=== PATIENT | female | born 1955 | race American Indian/Alaskan Native ===

== ENCOUNTER 2017-04-05 22:02 | Emergency (ER) | payer BC, OTHER ==
--- NOTE | 2017-04-06 01:25 | EDM.PDOC ---
ED HPI GENERAL MEDICAL PROBLEM - General Chief Complaint: Chest Pain Stated Complaint: PAIN ON SIDE/WALK IS PAINFUL [id number] Time Seen by Provider: 04/06/17 01:15 Source of Information: Reports: Patient History Limitations: Reports: No Limitations - History of Present Illness INITIAL COMMENTS - FREE TEXT/NARRATIVE: This 61 yo female patient reports to the ED with left sided chest and rib pain. The patient reports she was doing laundry on when the washing machine stopped working. The patient was moving the wet clothing from the washer to the dryer when she felt a pain in her left ribs. 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 The patient reports she took some ibuprofen on (which reduced her pain). 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 Right Thoracic Pain Score (Numeric/FACES): 6 - Related Data Allergies Allergy/AdvReac Type Severity Reaction Status Date / Time codeine Allergy Cannot Verified 04/05/17 22:20 Remember Latex, Natural Rubber Allergy Rash Verified 04/05/17 22:20 Home Meds: Home Meds Aspirin [[place] Aspirin] 81 mg PO DAILY 03/30/13 [History] Hydrochlorothiazide 25 mg PO DAILY 03/30/13 [History] Ibuprofen [Advil] 200 mg PO Q4HR 03/30/13 [History] Lisinopril [Prinivil] 20 mg PO DAILY 03/30/13 [History] Multivitamin [Daily Neida] 1 each PO DAILY 10/14/15 [History] Past Medical History Cardiovascular History: Reports: Hypertension - Past Surgical History GI Surgical History: Reports: Cholecystectomy Social & Family History - Tobacco Use Smoking Status *Q: Never Smoker Second Hand Smoke Exposure: No - Alcohol Use Days Per Week of Alcohol Use: 0 - Recreational Drug Use Recreational Drug Use: No ED ROS GENERAL - Review of Systems Review Of Systems: ROS reveals no pertinent complaints other than HPI. ED EXAM, GENERAL - Physical Exam Exam: See Below Exam Limited By: No Limitations General Appearance: Alert, WD/WN, Moderate Distress Eye Exam: Bilateral Eye: EOMI, Normal Inspection, PERRL Ears: Normal External Exam, Normal Canal, Hearing Grossly Normal, Normal TMs Nose: Normal Inspection Throat/Mouth: Normal Inspection, Normal Lips, Normal Teeth, Normal Gums, Normal Oropharynx, Normal Voice, No Airway Compromise Head: Atraumatic, Normocephalic Neck: Normal Inspection, Supple, Non-Tender, Full Range of Motion Respiratory/Chest: No Respiratory Distress, Lungs Clear, Normal Breath Sounds, No Accessory Muscle Use, Other (left chest wall tenderness) Cardiovascular: Normal Peripheral Pulses, Regular Rate, Rhythm, No Edema, No Gallop, No JVD, No Murmur, No Rub GI/Abdominal: Normal Bowel Sounds, Soft, Non-Tender, No Organomegaly, No Distention, No Abnormal Bruit, No Mass (Female) Exam: Deferred Rectal (Female) Exam: Deferred Back Exam: Normal Inspection, Full Range of Motion, NT Extremities: Normal Inspection, Normal Range of Motion, Non-Tender, Normal Capillary Refill, No Pedal Edema Neurological: Alert, Oriented, CN II-XII Intact, Normal Cognition, Normal Gait, Normal Reflexes, No Motor/Sensory Deficits Psychiatric: Normal Affect, Normal Mood Skin Exam: Warm, Dry, Intact, Normal Color, No Rash Lymphatic: No Adenopathy Course - Vital Signs Last Recorded V/S: Last Vital Signs Temp 36.6 C 04/05/17 22:16 Pulse 54 L 04/05/17 22:16 Resp 18 04/05/17 22:16 BP 103/69 04/05/17 22:16 Pulse Ox 98 04/05/17 22:16 - Orders/Labs/Meds Orders: Active Orders 24 hr Category Date Time Status Ribs 2V w Chest Lt [CR] Urgent Exams 04/06/17 01:18 Ordered Ketorolac [Toradol] Med 04/06/17 01:51 Once 30 mg IM ONETIME ONE Departure - Departure Time of Disposition: 01:51 Disposition: Home, Self-Care 01 Condition: Fair Clinical Impression: Intercostal muscle strain Qualifiers: Encounter type: initial encounter Qualified Code(s): S29.011A - Strain of muscle and tendon of front wall of thorax, initial encounter - Discharge Information Instructions: Muscle Strain, [id number] Forms: ED Department Discharge Care Plan Goals: The patient was advised of the examination and x-ray results during the visit. The patient was given an injection of Toradol while in the ED. The patient was encouraged to rest over the next 48 hours. If the patient has any additional symptoms or concerns, the patient should follow-up with her primary care facility or return to the emergency department. - My Orders Last 24 Hours: My Active Orders 04/06/17 01:18 Ribs 2V w Chest Lt [CR] Urgent 04/06/17 01:51 Ketorolac [Toradol] 30 mg IM ONETIME ONE - Assessment/Plan Last 24 Hours: My Active Orders 04/06/17 01:18 Ribs 2V w Chest Lt [CR] Urgent 04/06/17 01:51 Ketorolac [Toradol] 30 mg IM ONETIME ONE
[2017-04-06] MEDS ORDERED: Ketorolac 30 MG/ML SDV IM ONE (01:51)
[2017-04-06 02:19] VITALS: BP 149/77
== END 2017-04-06 02:13 | disposition home or self-care (01) ==
LOC: DL.ED 22:02
DX: S29.011A Strain of muscle and tendon of front wall of thorax, initial encounter (principal); I10 Essential (primary) hypertension; Z79.82 Long term (current) use of aspirin; Z79.899 Other long term (current) drug therapy; Z91.040 Latex allergy status; Z88.5 Allergy status to narcotic agent; X50.9XXA Other and unspecified overexertion or strenuous movements or postures, initial encounter; Y93.89 Activity, other specified; Y92.59 Other trade areas as the place of occurrence of the external cause; Y99.0 Civilian activity done for income or pay
CPT/HCPCS: 71101; 96372; 99283; J1885